=== PATIENT | female | born 1995 | race African-American/Black ===

== ENCOUNTER 2023-08-17 23:09 | Emergency (ER) | payer SELFPAY ==
[2023-08-18 00:46] LABS: Influenza A by NAA Not Detected (NotDetected); Influenza B by NAA Not Detected (NotDetected); SARS-CoV-2 NAA Rapid Test Not Detected (NotDetected)
[2023-08-18] MEDS ORDERED: Dexamethasone 4 MG TAB ONE (01:03)
== END 2023-08-18 01:10 | disposition home or self-care (01) ==
LOC: CSHERS 23:09
DX: B34.9 Viral infection, unspecified (principal)
CPT/HCPCS: 99284; J8540